=== PATIENT | female | born 1970 | race Caucasian/White ===

== ENCOUNTER 2021-09-16 09:45 | Day surgery (SDC) | payer OTHER ==
[~2021-09-16] VITALS: Ht 154.9 cm; Wt 85.5 kg
[~2021-09-16 09:45] MED LIST: SODIUM CHLORIDE 0.9% 1,000 ML IV ONE; SODIUM CHLORIDE 0.9% 1,000 ML ONE
[2021-09-16 10:11] LABS: COVID AG,FIA SOURCE NASAL SWAB
[2021-09-16] MEDS ORDERED: FENO120T5 PO (10:21)
[2021-09-16] MEDS ORDERED: ATOR10TA69 PO (10:21)
== END 2021-09-16 11:45 | disposition home or self-care (01) ==
LOC: SURGERY 09:45
PROVIDERS: ATTEND Internal Medicine Gastroenterology
DX: D50.9 Iron deficiency anemia, unspecified (principal); Z53.8 Procedure and treatment not carried out for other reasons; E78.5 Hyperlipidemia, unspecified; Z98.890 Other specified postprocedural states
CPT/HCPCS: 87426; 84703; C9803; J7030

== ENCOUNTER 2022-09-04 23:24 | Emergency (ER) | payer OTHER ==
[~2022-09-04] VITALS: Ht 162.6 cm; Wt 86.4 kg
[~2022-09-04 23:24] MED LIST changes: +ATOR10TA69 PO; +FENO120T5 PO; -SODIUM CHLORIDE 0.9% 1,000 ML IV ONE; -SODIUM CHLORIDE 0.9% 1,000 ML ONE
[2022-09-04] MEDS ORDERED: ACETAMINOPHEN 500 MG TABLET PO ONE (23:45)
[2022-09-05] MEDS ORDERED: KETOROLAC TROMETHAMINE 30 MG/ML VIAL IM ONE (01:15)
[2022-09-05 01:20] VITALS: BP 134/81; PULSE 75; RESP 20; TEMP 98.3
== END 2022-09-05 01:34 | disposition home or self-care (01) ==
LOC: EMS 23:24
DX: S52.121A Displaced fracture of head of right radius, initial encounter for closed fracture (principal); M25.561 Pain in right knee; W01.0XXA Fall on same level from slipping, tripping and stumbling without subsequent striking against object, initial encounter; Y93.89 Activity, other specified; Y92.89 Other specified places as the place of occurrence of the external cause; Y99.8 Other external cause status
CPT/HCPCS: 99284; 29105; 73060; 73080; 73090; 73110; 73562; 96372; J1885

== ENCOUNTER 2023-07-12 18:58 | Emergency (ER) | payer OTHER ==
[~2023-07-12] VITALS: Ht 154.9 cm; Wt 95.4 kg
[2023-07-12 19:00] VITALS: TEMP 98.1
[2023-07-12 19:37] LABS: BASOPHILS % (AUTO) 0.6 % (0.0-2.0); EOSINOPHILS % (AUTO) 1.9 % (1.0-6.0); HEMOGLOBIN 13.5 g/dL (12.0-16.0); LYMPHOCYTES # (AUTO) 1.9 K/uL (1.0-4.8); LYMPHOCYTES % (AUTO) 26.8 % (22.0-44.0); MEAN CORPUSCULAR HEMOGLOBIN 28.7 pg (26.0-34.0); MEAN CORPUSCULAR HGB CONC 33.8 G/dL (31.0-37.0); MEAN CORPUSCULAR VOLUME 85 fL (80-100); MONOCYTES # (AUTO) 0.4 K/uL (0.1-1.0); NEUTROPHILS # (AUTO) 4.7 K/uL (1.8-7.7); NEUTROPHILS % (AUTO) 65.7 % (40.0-70.0); PLATELET COUNT (AUTO) 271 K/uL (150-450); RED BLOOD CELL COUNT(AUTO) 4.71 MIL/uL (4.00-5.20); RED CELL DISTRIBUTION WIDTH 14.6 % (11.5-14.5); WHITE BLOOD COUNT (AUTO) 7.1 K/uL (4.5-11.0)
[2023-07-12 19:46] LABS: CREATININE 0.97 mg/dL (0.60-1.30); POTASSIUM 4.1 mmol/L (3.5-5.1)
[2023-07-12 19:51] LABS: ALBUMIN 3.7 g/dL (3.4-5.0); BILIRUBIN,TOTAL 0.3 mg/dL (0.1-1.0); TOTAL PROTEIN, SERUM 7.8 g/dL (6.4-8.2)
[2023-07-12 19:57] LABS: TROPONIN I-HIGH SENSITIVITY Less Than 4 ng/L (<51)
[2023-07-12] MEDS: PB/HYOSCY/ATR/SCOP/LIDO/MAALOX 55 ML BOTTLE PO ONE (21:31)
[2023-07-12] MEDS: OMEPRAZOLE 20 MG CAPSULE PO ONE (21:31)
[2023-07-12 22:40] VITALS: BP 122/79; PULSE 86; RESP 18
[2023-07-12] MEDS ORDERED: FAMO20 PO (22:55)
== END 2023-07-12 23:06 | disposition home or self-care (01) ==
LOC: EMS 19:01
DX: R07.89 Other chest pain (principal); K29.70 Gastritis, unspecified, without bleeding
CPT/HCPCS: 71045; 80053; 84484; 85025; 93005; 99285; 36415-L1; 36415-TC